=== PATIENT | male | born 1955 | race Caucasian/White ===

== ENCOUNTER 2018-01-02 06:39 | Inpatient (IN) ==
[2017-12-27 16:11] LABS: Appearance,Urine CLEAR; Bilirubin,Urine NEG (NEG); Color,Urine YELLOW; Glucose,Urine (UA) NEGATIVE (NEG); Leukocyte Esterase,Urine NEG /uL (NEG); Protein,Urine NEG (NEG); Specific Gravity,Urine 1.021 (1.000-1.035); Urine Blood NEG mg/dL (<0.03); Urobilinogen,Urine NEG (NEG)
[2017-12-27 16:24] LABS: Basophils # (Auto) 0 K/mcL (0.0-0.3); Basophils % (Auto) 0.3 % (0.0-2.0); Eosinophils # (Auto) 0.4 K/mcL (0.0-0.7); Eosinophils % (Auto) 4.6 % (0.0-7.0); Lymphocytes # (Auto) 2.1 K/mcL (1.5-4.8); Mean Cell Volume 90.5 fL (80.0-100.0); Mean Corpuscular HGB Conc 34.3 g/dL (31.0-36.0); Monocytes # (Auto) 0.6 K/mcL (0.1-0.9); Monocytes % (Auto) 7.1 % (1.0-12.0); Platelet Count 212 K/mcL (140-440); RBC 5.45 M/mcL (4.50-5.90); Red Cell Distribution Width 13.9 % (11.5-14.5)
[2017-12-27 16:34] LABS: Blood Urea Nitrogen 18 mg/dl (8-23)
[~2018-01-02 06:39] MED LIST: CELECOXIB 200 MG CAPSULE PO SCH; KETOROLAC 30 MG, ROPIVACAINE HCL/PF 49.5 ML, EPINEPHrine 0.5 MG, 0.9 % SODIUM CHLORIDE ... IJ SCH; PREGABALIN 75 MG CAPSULE PO SCH; oxyCODONE 10 MG TAB.ER.12H PO SCH
[2018-01-02] MEDS: ceFAZolin 1 GM VIAL IV SCH ×3 (09:21→17:00)
[2018-01-02] MEDS ORDERED: ROPIVACAINE HCL/PF 20 ML VIAL IJ ONE (09:35)
[2018-01-02] MEDS ORDERED: ePHEDrine 50 MG/ML AMPUL IV ONE (09:35)
[2018-01-02] MEDS ORDERED: MIDAZOLAM 5 MG/5 ML VIAL IV ONE (09:35)
[2018-01-02] MEDS ORDERED: ONDANSETRON 4 MG/2 ML VIAL IV ONE (09:35)
[2018-01-02] MEDS ORDERED: LIDOCAINE HCL/PF 100 MG/5 ML SYRINGE IV ONE (09:35)
[2018-01-02] MEDS ORDERED: DEXAMETHASONE 10 MG/ML VIAL IV ONE (09:35)
[2018-01-02] MEDS ORDERED: PROPOFOL 200 MG/20 ML VIAL IV ONE (09:35)
[2018-01-02] MEDS ORDERED: TRANEXAMIC ACID 1,000 MG/10 ML VIAL IV ONE (09:35)
--- NOTE | 2018-01-02 11:18 | Brief Operative Note ---
Date of procedure: 01/02/18 Pre-op diagnosis: Right knee severe DJD Post-op diagnosis: same Procedure: Right robotic assisted total knee arthroplasty Grafts/Implants: Yes ([employer]den Triathlon CR 4 femur, 5 tibia, 9mm insert, 36 patella) Anesthesia: spinal, GLMA Findings: multicompartment arthritis Complications: none Surgeon: José Martínez Resident Assistant Cna: Matias Houston Estimated blood loss (cc): 30 Specimens Removed/Pathology: none sent Condition: stable Disposition: PACU
[2018-01-02] MEDS ORDERED: POLYETHYLENE GLYCOL 3350 17 GM PACKET PO PRN (11:23)
[2018-01-02] MEDS ORDERED: MAGNESIUM HYDROXIDE 30 ML ORAL.SUSP PO PRN (11:23)
[2018-01-02] MEDS ORDERED: TRANEXAMIC ACID 1,000 MG/10 ML VIAL IV SCH (11:23)
[2018-01-02] MEDS ORDERED: ONDANSETRON 4 MG/2 ML VIAL IV PRN ×2 (11:23→11:27)
[2018-01-02] MEDS ORDERED: FLEETS ADULT ENEMA PR PRN (11:23)
[2018-01-02] MEDS ORDERED: HYDROmorphone 2 MG/ML VIAL IV PRN (11:23)
[2018-01-02] MEDS ORDERED: BENZOCAINE/MENTHOL 1 LOZENGE PO PRN (11:23)
[2018-01-02] MEDS ORDERED: BISACODYL 10 MG SUPP.RECT PR PRN (11:23)
[2018-01-02] MEDS ORDERED: diphenhydrAMINE 50 MG/ML VIAL IV PRN (11:27)
[2018-01-02] MEDS ORDERED: IPRATROPIUM/ALBUTEROL 3 ML AMPUL.NEB NEB PRN (11:27)
[2018-01-02] MEDS ORDERED: ePHEDrine 50 MG/ML AMPUL IV PRN (11:27)
[2018-01-02] MEDS ORDERED: ATROPINE SULFATE 0.4 MG/ML VIAL IV PRN (11:27)
[2018-01-02] MEDS ORDERED: ACETAMINOPHEN 1,000 MG/100 ML BOTTLE IV ONE (11:27)
[2018-01-02] MEDS ORDERED: NALOXONE HCL 0.4 MG/ML VIAL IV PRN (11:27)
[2018-01-02] MEDS ORDERED: PROMETHAZINE 25 MG/ML VIAL IV PRN (11:27)
[2018-01-02] MEDS ORDERED: METOPROLOL TARTRATE 5 MG/5 ML VIAL IV PRN (11:27)
[2018-01-02] MEDS ORDERED: METHOCARBAMOL 1,000 MG/10 ML VIAL IV PRN (11:27)
[2018-01-02] MEDS ORDERED: FLUMAZENIL 0.1 MG/ML ML IV PRN (11:27)
[2018-01-02] MEDS ORDERED: LACTATED RINGERS 1,000 ML IV SCH (11:30)
[2018-01-02] MEDS: fentaNYL 100 MCG/2 ML VIAL IV PRN ×2 (12:23→12:29)
--- NOTE | 2018-01-02 12:30 | Operative Note ---
DATE OF OPERATION: 01/02/2018 PREOPERATIVE DIAGNOSIS: Right knee multi-compartment osteoarthritis. POSTOPERATIVE DIAGNOSIS: Right knee multi-compartment osteoarthritis. PROCEDURE PERFORMED: Right robotic-assisted total knee arthroplasty placing a size 4 cruciate retaining femoral component, size 5 tibial baseplate, a 9 mm X3 tibial insert within a 36 patellar button. SURGEON: José Martínez MD. SALES RECRUITER: Malik Houston PA-C. ANESTHESIA: Spinal plus general. DRAINS: None. SPECIMENS: None. COMPLICATIONS: None. POSTOPERATIVE CONDITION: Stable. BLOOD LOSS: Less than 30 mL INDICATIONS FOR SURGERY: This is a 62-year-old male with progressive worsening knee pain. Radiographs showed advanced arthrosis. FINDINGS AT SURGERY: He had multi-compartment full-thickness cartilage loss. Post-implantation showed good limb alignment, patellar tracking, and stability. PROCEDURE IN DETAIL: The patient had been seen preoperatively. Informed consent had been obtained after discussion of risks and benefits of surgery. Risks including, but not limited to, bleeding; infection; possibly requiring implant removal and prolonged IV antibiotics; injury to nerves, blood vessels, and other surrounding structures; anesthetic risks; incomplete or no resolution of symptoms; stiffness; swelling; pain; clunking; DVT and pulmonary embolus risks; and the possibility of needing further revision surgery. He understood these risks and wished to proceed. Correct operative site was marked and then patient was taken to the operating room. General anesthesia was induced. The right lower extremity was then carefully prepped and draped in normal sterile fashion and a timeout was performed verifying patient name, operative site, and plan. Esmarch was used to exsanguinate the extremity and tourniquet was inflated. A midline incision was made with a scalpel through skin and subcutaneous tissue. IrriSept was irrigated and then a medial parapatellar arthrotomy made. Subperiosteal exposure was done of the anterior medial tibia and the distal anterior cortex of the femur. The retropatellar fat pad was excised. ACL was transected and the anterior horns of the menisci were removed. Stab incisions were made over the femur and tibia and bicortical pins placed and the arrays connected. We then placed the femoral and tibial checkpoints. Hip center of rotation was obtained as well as medial and lateral malleoli marked. We then did our double check of femoral and tibial checkpoints. Blue probe was used to map and then a rongeur was used to remove osteophytes. Flexion and extension gaps were checked with the spoons and we then adjusted implants to get 17 to 18 mm gaps medial and lateral on both flexion and extension. Once we liked the implant position and size, we used the robotic arm to perform our bone cuts. The tibial trial was placed and then pinned, and boss reamer and keel punch used to repair. We then placed a keeled tibial trial and elevated the femur. Posterior osteophytes were removed with curved osteotome and curet. Our femoral trial was impacted and pinned and then we drilled our peg holes. A 9 insert trial was placed. The knee was very stable through range of motion. Freehand technique was used to resect the patella. Pre-resection was 25, post-resection was 13. We went ahead and sized this to a 36, which was medialized maximally and holes were drilled. Patella trial was placed and a limited lateral facetectomy was performed. We checked our patellar tracking, which was excellent, so we went ahead and removed trial components while definitive implants were opened. We filled the joint with IrriSept and after minute we pulse lavaged copiously with saline. We then used the CO2 gun to clean and dry cancellous bone surfaces and cemented the tibia followed by the femur. Excess cement was removed and then the 9 insert trial was placed. The knee was taken into extension and then the patellar button was cemented. The joint was filled with IrriSept and while cement was hardening, we injected pain cocktail in the pericapsular and subcutaneous tissues. We also checked our extension, which was about 7 degrees short of full. We went ahead and removed our checkpoints as well as our tibial and femoral pins. We then pulse lavaged copiously with saline until cement had hardened. We flexed the knee up and removed the trial insert. We injected the posterior capsule with pain cocktail and opened a 9 insert. We irrigated with IrriSept and then impacted the insert. After a minute we pulse lavaged and then #2 FiberWire [id number] was used on the superior quadrant of the patella, #1 Vicryl [id number] around the inferior quadrant of the patella and running #1 Vicryl for patellar tendon and quad tendon. Then 2-0 Monocryl was used for subq after more IrriSept was irrigated and saline lavage. Owen were used for skin. Xeroform and sterile dressing were applied. Tourniquet was released. The patient was awakened, extubated, and transferred to recovery in stable condition. [email or web address] Job ID: [id number] Doc ID: [id number] José Martínez MD
--- NOTE | 2018-01-02 12:31 | XRay Report ---
HISTORY: Reason for Exam:Post-op total knee. FINDINGS: There is a well positioned total knee prosthesis. No fracture is present. IMPRESSION: Well-positioned right knee prosthesis Interpreted and Authenticated by: Danny Aiken 01/02/18
[2018-01-02] MEDS: KETOROLAC 30 MG/ML VIAL IV SCH ×3 (12:37→23:56)
[2018-01-02] MEDS: 0.9 % SODIUM CHLORIDE 1,000 ML IV SCH ×2 (13:15→23:56)
[2018-01-02] MEDS: HYDROcodone/APAP 10/325MG TABLET PO PRN ×3 (13:16→21:27)
[2018-01-02] MEDS: 0.9 % SODIUM CHLORIDE 10 ML SYRINGE IV SCH ×2 (13:25→21:27)
[2018-01-02] MEDS ORDERED: ZOLPIDEM 5 MG TABLET PO PRN (21:00)
[2018-01-02] MEDS ORDERED: SENNOSIDES 1 TABLET PO SCH (21:00)
[2018-01-02] MEDS: DOCUSATE SODIUM 100 MG CAPSULE PO SCH (21:27)
[2018-01-02] MEDS: ASPIRIN 325 MG ENTERIC COATED TABLET PO SCH (21:27)
[2018-01-03] MEDS: HYDROcodone/APAP 10/325MG TABLET PO PRN ×3 (01:15→10:10)
[2018-01-03] MEDS: ceFAZolin 1 GM VIAL IV SCH (01:15)
[2018-01-03] MEDS: KETOROLAC 30 MG/ML VIAL IV SCH ×2 (05:34→11:47)
[2018-01-03] MEDS: 0.9 % SODIUM CHLORIDE 10 ML SYRINGE IV SCH (05:36)
--- NOTE | 2018-01-03 07:44 | Discharge Summary ---
Providers - Providers Patient information: Note initiated : 01/03/18 at 7:42 am Service Date, if different from initiated Date: [] Patient: Danny Del Toro 62 y/o M admitted on 01/02/18 for Right Total Knee Arthroplasty - [facility]. Chief Complaint: [] Discharge date: 01/03/18 Hospitalization Hospital course: Pt was admitted for a TKA. He underwent the procedure on the day of admission. He was then transfered to the floor for IV pain meds, IV abx, and PT. He spent one night on the floor prior to being discharged. He will f/u at [facility] in 10-14 days. Discharge diagnosis: R knee osteoarthrosis Exam - Exam Clean and dry: Yes Weight bearing status: as tolerated Ortho Discharge - TKA - Patient Instructions Diet: Regular Diet Activity: activity as tolerated Total Knee Protocol: For Total Knee: Start ROM USMAN with stationary bike or rocking chair. Work on gaining full extension of knee. Posterior dislocation precautions provided. Hip abductor strengthening and gait training instructions provided. Apply Cryocuff as instructed. Dressing Care: May shower in 2 days - Follow Up Plan Disposition: Home, Self-Care Prognosis: Good Rehab Potential: Good Overall status at discharge: patient is progressing back to baseline - Orders For Discharge Prescriptions: Aspirin [Ecotrin] 325 mg PO BID #30 tab.ec HYDROcodone/APAP 10/325MG [Joshua 10-325Mg] 1 - 2 tab PO Q4HP PRN #90 tab PRN Reason: Pain Level 3-6 Pending Studies Resuscitation Status Full Code Diet Regular Diet Start SunJan 02 Dinner Hydrocodone Bitart/Acetaminophen (Joshua 10/325mg) 0 tab PO Q4HP PRN PRN Reason: PAIN LEVEL 3-6 Last Admin: 01/03/18 05:35 Dose: 2 tab Admin: 01/03/18 01:15 Dose: 2 tab Admin: 01/02/18 21:27 Dose: 2 tab Admin: 01/02/18 18:01 Dose: 2 tab Admin: 01/02/18 13:16 Dose: 2 tab Aspirin (Ecotrin) 325 mg PO BID [facility] Last Admin: 01/02/18 21:27 Dose: 325 mg Docusate Sodium (Colace) 100 mg PO BID [facility] Last Admin: 01/02/18 21:27 Dose: 100 mg Hydromorphone HCl (Dilaudid) 0 mg IV Q2HP PRN PRN Reason: PAIN LEVEL > 6 Last Admin: 01/02/18 15:24 Dose: 0.5 mg Sodium Chloride (Sodium Chloride 0.9%) 1,000 mls @ 100 mls/hr IV .Q10H [facility] Last Admin: 01/02/18 23:56 Dose: 100 mls/hr Infusion: 01/02/18 23:15 Dose: 100 mls/hr Admin: 01/02/18 13:15 Dose: 100 mls/hr Ketorolac Tromethamine (Toradol) 30 mg IV Q6 [facility] Stop: 01/04/18 06:01 Last Admin: 01/03/18 05:34 Dose: 30 mg Admin: 01/02/18 23:56 Dose: 30 mg Admin: 01/02/18 17:57 Dose: 30 mg Admin: 01/02/18 12:37 Dose: 30 mg Senna (Senokot) 2 tab PO HS [facility] Last Admin: 01/02/18 21:26 Dose: 2 tab Sodium Chloride (Saline Flush) 10 ml IV Q8 [facility] Last Admin: 01/03/18 05:36 Dose: 10 ml Admin: 01/02/18 21:27 Dose: Not Given Admin: 01/02/18 13:25 Dose: Not Given Shift Summary 01/03/18 04:52 Shift Summary by Kierra Aleman yesterday w/P.T. and tolerated well, up to BR to use urinal, voided twice conc. yellow urine, pt needs encouraged to drink fluids, pt stated that he didn't need fluids d/t IV infusing, will SL this AM prior to shift change, medicated with norco 10/325mg 2 tabs q4h which controls pain well, also receiving scheduled toradol, dsg with small dot of shadow drainage which is marked, tolerated CPM at 35 degrees for 2 hours, pt refused to have flexion increased, ABV on most of the night, cryo used on/off t/o shift, pt wishes to d/ c home today if possible Initialized on 01/03/18 04:52 - END OF NOTE
[2018-01-03] MEDS: DOCUSATE SODIUM 100 MG CAPSULE PO SCH (08:45)
[2018-01-03] MEDS: ASPIRIN 325 MG ENTERIC COATED TABLET PO SCH (08:45)
[2018-01-03] MEDS: 0.9 % SODIUM CHLORIDE 1,000 ML IV SCH (08:50)
[2018-01-03] MEDS: HYDROCHLOROTHIAZIDE 25 MG TABLET PO SCH ×2 (08:50→09:53)
[2018-01-03] MEDS ORDERED: CETIRIZINE 10 MG TABLET PO SCH (09:00)
[2018-01-03] MEDS ORDERED: ESCITALOPRAM 10 MG TABLET PO SCH (09:00)
[2018-01-03] MEDS ORDERED: BISOPROLOL 5 MG TABLET PO SCH (09:00)
[2018-01-03] MEDS ORDERED: TESTOSTERONE TOPICAL SCH (09:00)
[2018-01-03] MEDS ORDERED: LOSARTAN 50 MG TABLET PO SCH (09:00)
[2018-01-03] MEDS ORDERED: amLODIPine 5 MG TABLET PO SCH (09:00)
[2018-01-03] MEDS ORDERED: ATORVASTATIN 20 MG TABLET PO SCH (09:00)
== END 2018-01-03 13:24 | disposition home or self-care (01) | DRG 470 ==
LOC: MEDSUR 06:39
PROVIDERS: ADMIT Orthopaedic Surgery; ATTEND Orthopaedic Surgery